=== PATIENT | female | born 1940 | race Caucasian/White ===

== ENCOUNTER 2021-06-11 11:46 | Emergency (ER) | payer OTHER ==
[~2021-06-11] VITALS: Ht 149.9 cm; Wt 46.3 kg
[2021-06-11] MEDS ORDERED: ACETAMINOPHEN 325 MG TAB ONE (11:54)
[2021-06-11 11:56] VITALS: BP 155/111
--- NOTE | 2021-06-11 12:05 | NUR ---
PT TO ER BED 8 VIA W/C WITH FAMILY AT BEDSIDE
--- NOTE | 2021-06-11 12:28 | NUR ---
DR. AUGUSTIN BEDSIDE EVALUATING PT
[2021-06-11] MEDS ORDERED: ONDANSETRON 4 MG/2 ML VIAL IVP ONE (12:30)
[2021-06-11] MEDS ORDERED: NACL 0.9% 1,000 ML IV SCH (12:30)
--- NOTE | 2021-06-11 12:32 | NUR ---
80 FEMALE WITH C/O LOW ABD PAIN WITH N/V/D OFF AND ON X 2-3 WEEKS. UA DONE, PAIN 03/06. PT STATES SHE EXPERIENCED N/V X TODAY AND HAS FELT BETTER AFTER VOMITTING THIS AM. STATES LAST BM WAS TODAY. PMH: HTN, DM, THYROID, POSSIBLE CVA NKA
--- NOTE | 2021-06-11 12:53 | NUR ---
CONSENT FOR ABD CT WITH CONTRAST OBTAINED BEDSIDE
[2021-06-11 13:00] LABS: APPEARANCE,URINE CLOUDY (CLEAR); BILIRUBIN,URINE NEGATIVE (NEGATIVE); BLOOD, URINE NEGATIVE (NEGATIVE); COLOR,URINE YELLOW (YELLOW); LEUKOCYTE ESTERASE ,URINE 1+ (NEGATIVE); NITRITE, URINE POSITIVE (NEGATIVE); UGLUCOSE NEGATIVE (NEGATIVE)
[2021-06-11 13:04] LABS: BASOPHILS # (AUTO) 0.1 K/uL (0.00-0.22); BASOPHILS % (AUTO) 0.6 % (0.0-2.0); EOSINOPHILS # (AUTO) 0.1 K/uL (0-0.4); EOSINOPHILS % (AUTO) 0.6 % (0.0-4.0); HEMATOCRIT 45.1 % (36-48); HEMOGLOBIN 15.3 g/dL (12.0-16.0); MEAN CORPUSCULAR HEMOGLOBIN 30 pg (27-31); MEAN CORPUSCULAR HGB CONC 34 g/dL (33-37); MEAN CORPUSCULAR VOLUME 89.1 fL (80-94); MONOCYTES # (AUTO) 1.3 K/uL (0.8-1.0); NEUTROPHILS # (AUTO) 11.3 K/uL (1.8-7.7); PLATELET COUNT (AUTO) 220 K/uL (140-450); RED BLOOD CELL COUNT(AUTO) 5.07 MIL/uL (4.20-5.40); RED CELL DISTRIBUTION WIDTH 13.3 % (11.6-13.7); WHITE BLOOD COUNT (AUTO) 13.8 K/uL (4.8-10.8)
[2021-06-11 13:09] LABS: RBC,URINE 0-5 /HPF (0-5)
[2021-06-11 13:10] LABS: URINE AMORPHOUS URATE 1+ /HPF (None Seen); WBC,URINE 16-25 (MOD) /HPF (0-5)
[2021-06-11 13:18] LABS: LYMPHOCYTES % (AUTO) 7.4 % (20.5-51.1); MONOCYTES % (AUTO) 9.6 % (1.7-9.3); NEUTROPHILS % (AUTO) 81.8 % (42.2-75.2)
[2021-06-11 13:30] LABS: ALBUMIN 4.2 g/dL (3.4-5.0); ANION GAP 9.8 (8-16); ASPARTATE AMINOTRANSFERASE 18 U/L (15-37); CARBON DIOXIDE 29.2 mmol/L (21-32); CHLORIDE 104 mmol/L (98-107); CREATININE 1.1 mg/dL (0.6-1.3); GLUCOSE 172 mg/dL (74-106); LIPASE 97 U/L (73-393); SODIUM SERUM 139 mmol/L (136-145); TOTAL BILIRUBIN 0.9 mg/dL (0.0-1.0); UREA NITROGEN, BLOOD 13 mg/dL (7-18)
--- NOTE | 2021-06-11 13:37 | NUR ---
PT TAKEN TO CT SCAN VIA AXEL
--- NOTE | 2021-06-11 14:00 | NUR ---
PT RETURNED TO BED [address] VIA [facility]
--- NOTE | 2021-06-11 14:15 | NUR ---
BLOOD CULTURES COLLECTED BEDSIDE AND HANDED TO IMMIGRATION PATROL INSPECTOR
--- NOTE | 2021-06-11 14:17 | NUR ---
PT CURRENTLY RESTING BEDSIDE WITH EYES OPEN. BED IN LOWEST POSITION WITH SIDERAIL X1 UP AND BED LOCKED. PT ON LUBE TECHNICIAN AND VITAL SIGNS STABLE. WILL CONTINUE TO MONITOR
--- NOTE | 2021-06-11 14:55 | NUR ---
PT AMBULATED TO RESTROOM GAIT STEADY. Addendum: 06/11/21 at 1512 by [email or web address] GAIT STEADY WITH USE OF CANE
--- NOTE | 2021-06-11 15:01 | NUR ---
PT AMBULATED TO ROOM 8. GAIT STEADY WITH USE OF CANE
--- NOTE | 2021-06-11 16:29 | NUR ---
PT AMBUALTED TO RESTROOM. GAIT STEADY WITH CANE
[2021-06-11] MEDS ORDERED: CEPH-588 PO (16:53)
[2021-06-11] MEDS ORDERED: PHEN-1593 PO (16:53)
[2021-06-11] MEDS ORDERED: ONDA-24 SL (16:53)
--- NOTE | 2021-06-11 16:54 | NUR ---
PT CURRENTLY RESTING WITH EYES CLOSED. LIGHTS HAVE BEEN TURNED OFF FOR PT COMFORT. BED IN LOWEST POSITION WITH SIDERAIL X1 UP. VITAL SIGNS STABLE. PT STILL ON SPOOL SORTER. WILL CONTINUE TO MONITOR
[2021-06-11 17:12] VITALS: BP 161/71
--- NOTE | 2021-06-11 17:12 | NUR ---
Patient discharged with v/s stable. Written and verbal after care instructions given and explained. Patient alert, oriented and verbalized understanding of instructions. Ambulatory with steady gait. All questions addressed prior to discharge. ID band removed. Patient advised to follow up with PMD. Rx of KEFLEX, ZOFRAN, PYRIDIUM given. Patient educated on indication of medication including possible reaction and side effects. Opportunity to ask questions provided and answered.
--- NOTE | 2021-06-12 15:20 | NUR ---
RECEIVED CALL FROM LILLI, LAB: [facility]
== END 2021-06-11 17:12 | disposition home or self-care (01) ==
LOC: MED 11:46
DX: N39.0 Urinary tract infection, site not specified (principal); R11.2 Nausea with vomiting, unspecified; R19.7 Diarrhea, unspecified; E11.9 Type 2 diabetes mellitus without complications; I10 Essential (primary) hypertension; E03.9 Hypothyroidism, unspecified; Z79.899 Other long term (current) drug therapy
CPT/HCPCS: 36415; 74177; 80053; 81001; 83605; 83690; 85025; 87040; 87086; 96361; 96374; 99285; J2405; J7030; Q9967